=== PATIENT | male | born 1945 | race Caucasian/White ===

== ENCOUNTER 2021-12-14 21:32 | Outpatient (REF) | payer MEDICARE, SELFPAY ==
[2021-12-16 12:04] LABS: COVID-19 RT-PCR UVMMC Result Positive (Negative)
== END 2021-12-14 21:33 | disposition home or self-care (01) ==
LOC: LBN 21:32
PROVIDERS: Visit Provider Nurse Practitioner Family
DX: Z20.822 Contact with and (suspected) exposure to COVID-19 (principal); J06.9 Acute upper respiratory infection, unspecified
CPT/HCPCS: U0003; U0005

== ENCOUNTER 2022-10-15 14:10 | Emergency (ER) | payer MEDICARE, OTHER, SELFPAY ==
--- NOTE | 2022-10-15 14:12 | ED.GENADUL_ITS ---
Discharge Plan Disposition Patient Disposition: Home Discharge Details Clinical Impression: Cellulitis of periumbilical region Primary Care Provider: Chery,Local ED Provider: Dell Reyes Home Meds and New Rx's Prescriptions: New cefuroxime axetil 500 mg tablet 500 mg PO BID Qty: 10 0RF Discharge Instructions Instructions: Cellulitis (ED) Additional Instructions: You were seen in the emergency department for your periumbilical redness. You likely have a reaction to your tick bite causing an early skin infection for which you are receiving treatment with an antibiotic that you should take as directed. If you develop fevers worsening redness or any pain please return to the emergency department. Medical Decision Making This is an overall very well-appearing afebrile and not tachycardic 77-year-old male with mild periumbilical erythema concerning for early cellulitis secondary to tick bite for which he will receive antibiotics using cefuroxime in the event that there is a component of early tickborne disease. No signs of erythema migrans to suggest Lyme. Patient is adamant that his tick was not dog tick and not a deer tick. He has had no systemic symptoms of fevers chills nausea nor vomiting so feel he is appropriate for empiric trial of expectant outpatient management. There is no fluctuance to suggest abscess. No pain out of proportion to suggest necrotizing soft tissue infection. I have advised patient to return to the ED if he develops worsening erythema increased swelling or if he has any other concerns. I advised against using peroxide and against use of bacitracin in the event that the patient was having an allergic response to antiseptics. Will treat with 5 days of antibiotics for cellulitis plan proceed with an empiric trial of expectant outpatient management. HPI General Date/Time Provider Initiated Documentation: 10/15/22 14:12 . HPI Narrative: This is a 77-year-old male who reported being bit by a tick yesterday. He was not sure for how long the tick was attached. He reports that he has a dog. He reports that he used tweezers to remove the tick and subsequently cleaned the area with peroxide. The area has subsequently been itching him and he developed some surrounding redness. He has had no fevers chills nausea nor vomiting. He denies allergies and takes no routine medications. He does not have any pain to his abdomen. He did notice some spontaneous drainage from his wound. Related Data Home Medications Medication Instructions Recorded Confirmed cefuroxime axetil 500 mg tablet 500 mg PO BID #10 tabs 10/15/22 Previous Rx's Medication Instructions Recorded cefuroxime axetil 500 mg tablet 500 mg PO BID #10 tabs 10/15/22 Allergies Allergy/AdvReac Type Severity Reaction Status Date / Time No Known Allergies Allergy Unverified 02/03/17 22:40 PFSH All Active Problems (Updated 10/15/22 @ 14:34 by Dell Reyes MD) Cellulitis of periumbilical region (Acute) Social History Smoking/Tobacco Use Status: Never Smoking risk assessment performed?: Yes Alcohol Intake: never Drug use: Never Substance use type: does not use Do you feel safe at home: Yes Do you feel safe in your relationship?: Yes Exam Narrative Exam Narrative: General: Well-appearing in no acute distress speaking in complete sentences. Head: Normocephalic, atraumatic. Eye: Pupils equal, round reactive to light. Extraocular eye movements intact. No conjunctival injection. No scleral icterus. Ear, nose, mouth, throat: Grossly normal inspection. Normal voice, handling secretions normally. Neck: Trachea midline. Cardiovascular: Well-perfused distal extremities. Respiratory: Nonlabored respiration. Gastrointestinal: Nondistended abdomen. Musculoskeletal: No edema. Moving all 4 extremities spontaneously. Skin: At approximately the 3 o'clock position on the umbilicus there is a very small well-healing puncture consistent with patient's history of tick bite. There is mild surrounding erythema approximately 4 cm in radius around the umbilicus. No erythema migrans. No fluctuance. No pain out of proportion. Neurologic: Alert and appropriate, no apparent acute deficits. Psychiatric: Mood and manner are appropriate. Grooming and personal hygiene are appropriate.
[2022-10-15 14:18] VITALS: BP 126/80; PULSE 71; RESP 18; TEMP 36.4; O2SAT 98
[2022-10-15] MEDS: Cefuroxime 500 MG TAB PO (15:12)
== END 2022-10-15 15:13 | disposition home or self-care (01) ==
PROVIDERS: Emergency Provider Emergency Medicine
DX: L03.316 Cellulitis of umbilicus (principal); S30.861A Insect bite (nonvenomous) of abdominal wall, initial encounter; W57.XXXA Bitten or stung by nonvenomous insect and other nonvenomous arthropods, initial encounter
CPT/HCPCS: 99283; 99284